=== PATIENT | female | born 1975 | race Caucasian/White ===

== ENCOUNTER 2023-09-20 08:30 | Inpatient (IN) | payer MEDICAID, OTHER ==
[~2023-09-20] VITALS: Ht 170.2 cm; Wt 108.9 kg
[2023-09-20 08:35] VITALS: BP 136/71; PULSE 72; RESP 16; TEMP 98.1; O2SAT 100
[2023-09-20] MEDS ORDERED: LORazepam 2 MG/ML VIAL ONE ×2 (10:46→11:05)
[2023-09-20] MEDS: NACL 0.9% 1,000 ML IV ONE (10:56)
[2023-09-20] MEDS: ONDANSETRON 4 MG/2 ML VIAL IVP ONE (10:58)
[2023-09-20] MEDS: FAMOTIDINE 20 MG/2 ML VIAL IVP ONE (11:01)
[2023-09-20] MEDS: LORazepam 2 MG/ML VIAL IVP ONE (11:14)
[2023-09-20 11:46] LABS: BASOPHILS % (AUTO) 0.2 % (0.0-2.0); EOSINOPHILS % (AUTO) 0.1 % (0.0-4.0); HEMATOCRIT 40.4 % (36-48); HEMOGLOBIN 13.7 g/dL (12.0-16.0); LYMPHOCYTES # (AUTO) 0.9 K/uL (2.5-16.5); MEAN CORPUSCULAR HEMOGLOBIN 30 pg (27-31); MEAN CORPUSCULAR HGB CONC 34 g/dL (33-37); MEAN CORPUSCULAR VOLUME 88.4 fL (80-94); MONOCYTES # (AUTO) 0.4 K/uL (0.8-1.0); MONOCYTES % (AUTO) 4.3 % (1.7-9.3); NEUTROPHILS # (AUTO) 6.9 K/uL (1.8-7.7); NEUTROPHILS % (AUTO) 84.4 % (42.2-75.2); PLATELET COUNT (AUTO) 227 K/uL (140-450); RED BLOOD CELL COUNT(AUTO) 4.57 MIL/uL (4.20-5.40); RED CELL DISTRIBUTION WIDTH 17.2 % (11.6-13.7); WHITE BLOOD COUNT (AUTO) 8.2 K/uL (4.8-10.8)
[2023-09-20 11:54] LABS: ANION GAP 12.4 (8-16); CALCIUM 7.6 mg/dL (8.5-10.1); CARBON DIOXIDE 24.3 mmol/L (21-32); CREATININE 0.7 mg/dL (0.6-1.3)
[2023-09-20 11:56] LABS: POTASSIUM 2.7 mmol/L (3.5-5.1)
[2023-09-20] MEDS ORDERED: LORazepam 1 MG TAB PO PRN (12:35)
[2023-09-20] MEDS: KCL 20 MEQ IN 100 mL PREMIX 100 ML IV ONE (12:35)
[2023-09-20] MEDS ORDERED: ZOLPIDEM 5 MG TAB PO PRN (12:35)
[2023-09-20] MEDS ORDERED: ONDANSETRON 4 MG/2 ML VIAL IVP PRN (12:35)
[2023-09-20] MEDS: NACL 0.9% 1,000 ML IV SCH (12:35)
[2023-09-20] MEDS ORDERED: MORPHINE SULFATE 2 MG/ML SYR IVP PRN (12:35)
[2023-09-20 12:37] LABS: BILIRUBIN,DIRECT 1.1 mg/dL (0.0-0.3); TOTAL BILIRUBIN 3.6 mg/dL (0.0-1.0)
[2023-09-20 12:38] LABS: ALANINE AMINOTRANSFERASE 494 U/L (12-78); ALBUMIN 2.6 g/dL (3.4-5.0); ALKALINE PHOSPHATASE 216 U/L (50-136); ASPARTATE AMINOTRANSFERASE 356 U/L (15-37); TOTAL PROTEIN, SERUM 5.4 g/dL (6.4-8.2)
[2023-09-20 12:39] LABS: ALCOHOL, BLOOD < 3 mg/dL (<10); LIPASE 89 U/L (16-77)
[2023-09-20] MEDS: LORazepam 1 MG TAB PO SCH (13:00)
[2023-09-20 13:36] LABS: APPEARANCE,URINE CLEAR (CLEAR); BILIRUBIN,URINE 2+ (NEGATIVE); BLOOD, URINE TRACE-I (NEGATIVE); COLOR,URINE YELLOW (YELLOW); LEUKOCYTE ESTERASE ,URINE NEGATIVE (NEGATIVE); NITRITE, URINE POSITIVE (NEGATIVE); PH,URINE 6.5 (5.0-9.0); PROTEIN,URINE 2+ (NEGATIVE); UGLUCOSE NEGATIVE (NEGATIVE)
[2023-09-20 14:11] LABS: RBC,URINE 0-5 /HPF (0-5); WBC,URINE 0-5 /HPF (0-5)
[2023-09-20 14:12] LABS: BACTERIA,URINE FEW /HPF (None Seen); MUCUS,URINE 1+ /LPF (None Seen); SQUAMOUS EPITHELIAL CELL,UR 0-3 (FEW) /LPF (0-3 (FEW))
[2023-09-20 14:14] LABS: ICTOTEST POSITIVE (NEGATIVE)
[2023-09-20] MEDS: MAG SULF 2000 MG/WATER PREMIX 50 ML IV ONE (15:40)
[2023-09-20 16:00] VITALS: BP 126/73; PULSE 102; PULSE 68; RESP 16; TEMP 98.1; O2SAT 98
[2023-09-20 20:00] VITALS: BP 140/88; PULSE 87; RESP 17; TEMP 97.1; O2SAT 98
[2023-09-20 20:04] VITALS: PULSE 83
[2023-09-20] MEDS: KCL 20 MEQ IN 100 mL PREMIX 200 ML IV SCH (22:18)
[2023-09-21] VITALS: BP 139/80; PULSE 71; PULSE 81; RESP 17; TEMP 97.9; O2SAT 98
[2023-09-21 04:00] VITALS: BP 148/88; PULSE 74; PULSE 84; RESP 17; TEMP 97.5; O2SAT 98
[2023-09-21 07:41] LABS: BASOPHILS % (AUTO) 0.4 % (0.0-2.0); EOSINOPHILS # (AUTO) 0.1 K/uL (0-0.4); EOSINOPHILS % (AUTO) 2.2 % (0.0-4.0); HEMATOCRIT 39.6 % (36-48); HEMOGLOBIN 13.3 g/dL (12.0-16.0); LYMPHOCYTES % (AUTO) 30.7 % (20.5-51.1); MEAN CORPUSCULAR HEMOGLOBIN 30 pg (27-31); MEAN CORPUSCULAR HGB CONC 34 g/dL (33-37); MEAN CORPUSCULAR VOLUME 89.3 fL (80-94); MONOCYTES # (AUTO) 0.5 K/uL (0.8-1.0); MONOCYTES % (AUTO) 7.6 % (1.7-9.3); NEUTROPHILS # (AUTO) 3.9 K/uL (1.8-7.7); NEUTROPHILS % (AUTO) 59.1 % (42.2-75.2); PLATELET COUNT (AUTO) 210 K/uL (140-450); RED BLOOD CELL COUNT(AUTO) 4.43 MIL/uL (4.20-5.40); RED CELL DISTRIBUTION WIDTH 17.2 % (11.6-13.7); WHITE BLOOD COUNT (AUTO) 6.6 K/uL (4.8-10.8)
[2023-09-21 07:57] LABS: ALBUMIN 2.6 g/dL (3.4-5.0); ANION GAP 10.5 (8-16); CALCIUM 8.2 mg/dL (8.5-10.1); CREATININE 0.8 mg/dL (0.6-1.3); MAGNESIUM 2.1 mg/dL (1.8-2.4); POTASSIUM 3.5 mmol/L (3.5-5.1); TOTAL BILIRUBIN 2.6 mg/dL (0.0-1.0); TOTAL PROTEIN, SERUM 5.6 g/dL (6.4-8.2)
[2023-09-21 08:00] VITALS: BP 147/90; PULSE 67; PULSE 78; RESP 18; TEMP 98; O2SAT 95
[2023-09-21] MEDS: DOCUSATE SODIUM 100 MG GELCAP PO SCH (09:00)
[2023-09-21] MEDS: FOLIC ACID 1 MG TAB PO SCH (09:27)
[2023-09-21] MEDS: THIAMINE 100 MG TAB PO SCH (09:27)
[2023-09-21] MEDS: MULTIVITAMIN 1 TAB PO SCH (09:27)
[2023-09-21 12:00] VITALS: BP 141/86; PULSE 71; PULSE 82; RESP 18; TEMP 98.2; O2SAT 98
[2023-09-21] MEDS: SERTRALINE 50 MG TAB PO SCH (12:16)
[2023-09-21] MEDS ORDERED: GABA100C PO (21:02)
== END 2023-09-21 16:00 | disposition left against medical advice (07) | DRG 425 ==
LOC: MED 08:30 → MTU 12:45
PROVIDERS: ADMIT Student in an Organized Health Care Education/Training Program; ATTEND Student in an Organized Health Care Education/Training Program
DX: E87.6 Hypokalemia (principal); E44.0 Moderate protein-calorie malnutrition; K70.9 Alcoholic liver disease, unspecified; F10.239 Alcohol dependence with withdrawal, unspecified; R74.01 Elevation of levels of liver transaminase levels; Z53.29 Procedure and treatment not carried out because of patient's decision for other reasons; Z88.8 Allergy status to other drugs, medicaments and biological substances; Z79.899 Other long term (current) drug therapy; Z68.37 Body mass index [BMI] 37.0-37.9, adult
CPT/HCPCS: 36415; 71045; 80048; 80053; 80076; 81001; 82140; 83690; 83735; 84484; 85025; 93005; 96361; 96374; 96375; 99285; G0482; J2060; J2405; J3475; J3480; J3490

== ENCOUNTER 2023-09-21 17:00 | Inpatient (IN) | payer MEDICAID ==
[~2023-09-21] VITALS: Ht 175.3 cm; Wt 85.8 kg
[2023-09-21 17:12] VITALS: BP 132/97; PULSE 119; RESP 18; TEMP 98.2; O2SAT 96
[2023-09-21 17:37] LABS: BASOPHILS % (AUTO) 0.4 % (0.0-2.0); EOSINOPHILS # (AUTO) 0.1 K/uL (0-0.4); EOSINOPHILS % (AUTO) 1.8 % (0.0-4.0); HEMATOCRIT 40.4 % (36-48); HEMOGLOBIN 13.3 g/dL (12.0-16.0); LYMPHOCYTES # (AUTO) 2.2 K/uL (2.5-16.5); LYMPHOCYTES % (AUTO) 27.3 % (20.5-51.1); MEAN CORPUSCULAR HEMOGLOBIN 30 pg (27-31); MEAN CORPUSCULAR HGB CONC 33 g/dL (33-37); MEAN CORPUSCULAR VOLUME 89.6 fL (80-94); MONOCYTES # (AUTO) 0.4 K/uL (0.8-1.0); MONOCYTES % (AUTO) 5.2 % (1.7-9.3); NEUTROPHILS # (AUTO) 5.3 K/uL (1.8-7.7); NEUTROPHILS % (AUTO) 65.3 % (42.2-75.2); PLATELET COUNT (AUTO) 235 K/uL (140-450); RED BLOOD CELL COUNT(AUTO) 4.51 MIL/uL (4.20-5.40); RED CELL DISTRIBUTION WIDTH 17.5 % (11.6-13.7); WHITE BLOOD COUNT (AUTO) 8.1 K/uL (4.8-10.8)
[2023-09-21 17:49] LABS: ANION GAP 13.7 (8-16); CALCIUM 7.9 mg/dL (8.5-10.1); CARBON DIOXIDE 23.8 mmol/L (21-32); POTASSIUM 3.5 mmol/L (3.5-5.1)
[2023-09-21 17:53] LABS: ALBUMIN 2.8 g/dL (3.4-5.0); BILIRUBIN,DIRECT 0.7 mg/dL (0.0-0.3); TOTAL PROTEIN, SERUM 5.8 g/dL (6.4-8.2)
[2023-09-21] MEDS: NACL 0.9% 1,000 ML IV ONE (20:18)
[2023-09-21 20:22] VITALS: O2SAT 99
[2023-09-21] MEDS: ONDANSETRON 4 MG/2 ML VIAL IVP ONE (20:28)
[2023-09-21] MEDS: MORPHINE SULFATE 4 MG/ML SYR IVP ONE (20:30)
[2023-09-21] MEDS ORDERED: GABA100C PO (21:02)
[2023-09-21] MEDS: DIAZEPAM PFS 10 MG/2 ML SYR IVP ONE (21:17)
[2023-09-21] MEDS ORDERED: ACETAMINOPHEN 325 MG TAB PO PRN (21:50)
[2023-09-21] MEDS ORDERED: ONDANSETRON 4 MG/2 ML VIAL IVP PRN (21:50)
[2023-09-21] MEDS: NICOTINE TRANSD SYS 14 MG/24 HR PATCH TD ONE (21:57)
[2023-09-21 23:20] VITALS: PULSE 119; RESP 19; O2SAT 97
[2023-09-21] MEDS: LORazepam 1 MG TAB PO PRN (23:45)
[2023-09-21] MEDS: NACL 0.9% 1,000 ML IV SCH (23:45)
[2023-09-21] MEDS: ZOLPIDEM 5 MG TAB PO PRN (23:47)
[2023-09-22] MEDS ORDERED: LORazepam 1 MG TAB PO PRN (00:05)
[2023-09-22 04:00] VITALS: BP 141/101; PULSE 99; RESP 19; TEMP 97.4; O2SAT 97
[2023-09-22] MEDS: LORazepam 1 MG TAB PO SCH (05:07)
[2023-09-22 06:49] LABS: BASOPHILS % (AUTO) 0.3 % (0.0-2.0); EOSINOPHILS # (AUTO) 0.1 K/uL (0-0.4); EOSINOPHILS % (AUTO) 1.8 % (0.0-4.0); HEMATOCRIT 34.9 % (36-48); HEMOGLOBIN 11.2 g/dL (12.0-16.0); LYMPHOCYTES # (AUTO) 2.2 K/uL (2.5-16.5); LYMPHOCYTES % (AUTO) 28.2 % (20.5-51.1); MEAN CORPUSCULAR HEMOGLOBIN 29 pg (27-31); MEAN CORPUSCULAR HGB CONC 32 g/dL (33-37); MEAN CORPUSCULAR VOLUME 91.1 fL (80-94); MONOCYTES # (AUTO) 0.4 K/uL (0.8-1.0); MONOCYTES % (AUTO) 5.2 % (1.7-9.3); NEUTROPHILS # (AUTO) 5.1 K/uL (1.8-7.7); NEUTROPHILS % (AUTO) 64.5 % (42.2-75.2); PLATELET COUNT (AUTO) 182 K/uL (140-450); RED BLOOD CELL COUNT(AUTO) 3.83 MIL/uL (4.20-5.40); RED CELL DISTRIBUTION WIDTH 17.9 % (11.6-13.7); WHITE BLOOD COUNT (AUTO) 7.9 K/uL (4.8-10.8)
[2023-09-22 07:09] LABS: ALBUMIN 2.4 g/dL (3.4-5.0); ANION GAP 10.3 (8-16); CALCIUM 7.6 mg/dL (8.5-10.1); CARBON DIOXIDE 24.8 mmol/L (21-32); CREATININE 0.9 mg/dL (0.6-1.3); POTASSIUM 3.1 mmol/L (3.5-5.1); TOTAL BILIRUBIN 1.6 mg/dL (0.0-1.0); TOTAL PROTEIN, SERUM 5.1 g/dL (6.4-8.2)
[2023-09-22 08:00] VITALS: PULSE 99; RESP 19; O2SAT 97
[2023-09-22] MEDS: DOCUSATE SODIUM 100 MG GELCAP PO SCH (09:00)
[2023-09-22] MEDS: FOLIC ACID 1 MG TAB PO SCH (09:16)
[2023-09-22] MEDS: SERTRALINE 50 MG TAB PO SCH (09:17)
[2023-09-22] MEDS: MULTIVITAMIN 1 TAB PO SCH (09:17)
[2023-09-22] MEDS: THIAMINE 100 MG TAB PO SCH (09:17)
[2023-09-22] MEDS: NICOTINE TRANSD SYS 14 MG/24 HR PATCH TD SCH (09:18)
[2023-09-22 10:29] VITALS: BP 137/68; PULSE 67; RESP 19; TEMP 96.6; O2SAT 100
[2023-09-22] MEDS: POTASSIUM CHLORIDE 10 MEQ TABER PO SCH (13:41)
[2023-09-22 16:00] VITALS: BP 133/7; PULSE 84; RESP 18; TEMP 97.3; O2SAT 97
[2023-09-22] MEDS: SODIUM ZIRCONIUM CYCLOSILICATE 10 GM POWD.PACK ONE (17:25)
[2023-09-22 20:00] VITALS: BP 130/85; PULSE 88; RESP 17; TEMP 98.1; O2SAT 97; O2SAT 98
[2023-09-22] MEDS: POTASSIUM CHLORIDE 10 MEQ TABER PO ONE (21:16)
[2023-09-23 04:00] VITALS: BP 138/92; PULSE 77; RESP 16; TEMP 97.8; O2SAT 97
[2023-09-23] MEDS: NACL 0.9% 1,000 ML IV SCH (04:15)
[2023-09-23 06:46] LABS: BASOPHILS % (AUTO) 0.3 % (0.0-2.0); EOSINOPHILS # (AUTO) 0.2 K/uL (0-0.4); EOSINOPHILS % (AUTO) 2.5 % (0.0-4.0); HEMATOCRIT 31.7 % (36-48); HEMOGLOBIN 10.6 g/dL (12.0-16.0); LYMPHOCYTES % (AUTO) 30.8 % (20.5-51.1); MEAN CORPUSCULAR HEMOGLOBIN 31 pg (27-31); MEAN CORPUSCULAR HGB CONC 34 g/dL (33-37); MEAN CORPUSCULAR VOLUME 91.2 fL (80-94); MONOCYTES # (AUTO) 0.4 K/uL (0.8-1.0); MONOCYTES % (AUTO) 5.5 % (1.7-9.3); NEUTROPHILS % (AUTO) 60.9 % (42.2-75.2); PLATELET COUNT (AUTO) 147 K/uL (140-450); RED BLOOD CELL COUNT(AUTO) 3.48 MIL/uL (4.20-5.40); RED CELL DISTRIBUTION WIDTH 17.9 % (11.6-13.7); WHITE BLOOD COUNT (AUTO) 6.5 K/uL (4.8-10.8)
[2023-09-23 07:04] LABS: ANION GAP 10.2 (8-16); CALCIUM 7.7 mg/dL (8.5-10.1); CARBON DIOXIDE 24.6 mmol/L (21-32); CREATININE 0.7 mg/dL (0.6-1.3); POTASSIUM 3.8 mmol/L (3.5-5.1); TOTAL BILIRUBIN 0.7 mg/dL (0.0-1.0); TOTAL PROTEIN, SERUM 4.6 g/dL (6.4-8.2)
[2023-09-23 08:00] VITALS: BP 152/91; PULSE 70; RESP 18; TEMP 96.9; O2SAT 96
[2023-09-23] MEDS ORDERED: ARIP5TAB8 PO (10:27)
[2023-09-23] MEDS ORDERED: MIRT-120 PO (10:27)
[2023-09-23 10:44] VITALS: BP 152/91; PULSE 70; RESP 18; TEMP 96.9
== END 2023-09-23 11:20 | disposition home or self-care (01) | DRG 249 ==
LOC: MED 17:00 → MTU 21:50
PROVIDERS: ADMIT Student in an Organized Health Care Education/Training Program; ATTEND Student in an Organized Health Care Education/Training Program
DX: R11.2 Nausea with vomiting, unspecified (principal); E44.0 Moderate protein-calorie malnutrition; F31.9 Bipolar disorder, unspecified; R74.01 Elevation of levels of liver transaminase levels; F41.9 Anxiety disorder, unspecified; F43.10 Post-traumatic stress disorder, unspecified; Z59.00 Homelessness unspecified; Z68.27 Body mass index [BMI] 27.0-27.9, adult; Z79.899 Other long term (current) drug therapy; F10.239 Alcohol dependence with withdrawal, unspecified
CPT/HCPCS: 36415; 80048; 80053; 80076; 82140; 82948; 83690; 85025; 87081; 96361; 96374; 96375; 99285; J2270; J2405; J3360